=== PATIENT | female | born 1980 | race Caucasian/White ===

== ENCOUNTER 2018-02-18 13:27 | Emergency (ER) | payer MEDICAID ==
[2018-02-18 13:41] VITALS: RESP 18
[2018-02-18] MEDS ORDERED: Sodium Chloride 0.9% 1,000 ML IV ONE (16:03)
[2018-02-18 16:23] VITALS: TEMP 98.1; O2SAT 100
[2018-02-18 16:47] LABS: BASO % 0.4 % (0.0-2.0); EOS # 0.1 K/uL (0.0-0.7); HEMOGLOBIN 12.5 g/dL (11.0-16.0); LYMPH # 1.5 K/uL (1.0-4.3); LYMPH % 21.7 % (20.0-40.0); MEAN CELL VOLUME 82.3 fL (81.0-99.0); MEAN CORPUSCULAR HEMOGLOBIN 26.9 pg (27.0-31.0); MEAN CORPUSCULAR HGB CONC 32.7 g/dL (33.0-37.0); MEAN PLATELET VOLUME 8.2 fL (7.2-11.7); MONO # 0.4 K/uL (0.0-0.8); MONO % 5.6 % (0.0-10.0); NEUT % 71.3 % (50.0-75.0); NRBC % 0.1 % (0.0-2.0); RBC 4.63 Mil/uL (3.80-5.20); RED CELL DISTRIBUTION WIDTH 13.8 % (11.5-14.5)
[2018-02-18 16:49] LABS: HCG,QUALITATIVE URINE NEGATIVE (NEGATIVE)
[2018-02-18 16:50] LABS: SQUAMOUS EPITHIAL < 1 /hpf (0-5); URINE BILIRUBIN NEGATIVE (NEGATIVE); URINE BLOOD 2+ (NEGATIVE); URINE CLARITY Clear (Clear); URINE COLOR Straw (YELLOW); URINE GLUCOSE (UA) NORMAL (Normal); URINE LEUKOCYTE ESTERASE NEG Leu/uL (Negative); URINE PROTEIN NEGATIVE (NEGATIVE); URINE UROBILINOGEN NORMAL mg/dL (0.2-1.0)
[2018-02-18 16:58] LABS: ALB/GLOB RATIO 1.4 (1.0-2.1); ALBUMIN 4.5 g/dL (3.5-5.0); ALT/SGPT 21 U/L (9-52); AST/SGOT 18 U/L (14-36); BLOOD UREA NITROGEN 10 mg/dL (7-17); CALCIUM 8.9 mg/dl (8.6-10.4); GFR NON-AFRICAN AMERICAN > 60
--- NOTE | 2018-02-18 17:01 | RAD ---
Date of service: 2018-02-18 16:28:21 HISTORY: CP COMPARISON: None available. FINDINGS: LUNGS: No active pulmonary disease. PLEURA: No significant pleural effusion identified, no pneumothorax apparent. CARDIOVASCULAR: No aortic atherosclerotic calcification present. Normal cardiac size. No pulmonary vascular congestion. OSSEOUS STRUCTURES: No significant abnormalities. VISUALIZED UPPER ABDOMEN: Normal. OTHER FINDINGS: None. IMPRESSION: No active disease.
[2018-02-18 17:16] LABS: CK-MB < 0.22 ng/mL (0.0-3.38)
--- NOTE | 2018-02-18 17:31 | C.PDOC ---
History Of Present Illness 38 year old female presents to the ED for evaluation of left-sided chest pain which began this morning. Patient describes her pain as sharp, pleuritic and reproducible. Patient reports history of "blood clots" in her mother. She denies fever, chills, cough, shortness of breath, abdominal pain, nausea, vomiting and diarrhea. Time Seen by Provider: 02/18/18 15:50 Chief Complaint (Nursing): Chest Pain History Per: Patient History/Exam Limitations: no limitations Onset/Duration Of Symptoms: Hrs Current Symptoms Are (Timing): Still Present Quality: Sharp, "Pain" Additional History Per: Patient Past Medical History Reviewed: Historical Data, Nursing Documentation, Vital Signs Vital Signs: Last Vital Signs Temp 98.1 F 02/18/18 16:22 Pulse 68 02/18/18 16:22 Resp 18 02/18/18 16:22 BP 107/69 02/18/18 16:22 Pulse Ox 100 02/18/18 16:22 - Medical History PMH: No Chronic Diseases Surgical History: - [facility] Procedures ARTIF RUPT MEMBRANES NEC (12/25/12) BILAT TUBAL DESTRUCT NEC (12/25/12) MONITORING NOS (12/25/12) INJECT/INFUSE NEC (01/23/14) LOW CERVICAL (12/25/12) Family History: States: Unknown Family Hx - Social History Hx Alcohol Use: No Hx Substance Use: No - Immunization History Hx Tetanus Toxoid Vaccination: No Hx Influenza Vaccination: No Hx Pneumococcal Vaccination: No Review Of Systems Constitutional: Negative for: Fever, Chills Cardiovascular: Positive for: Chest Pain (left-sided ) Respiratory: Negative for: Cough, Shortness of Breath Gastrointestinal: Negative for: Nausea, Vomiting, Abdominal Pain, Diarrhea Physical Exam - Physical Exam Appears: Non-toxic, No Acute Distress, Other (in mild pain ) Skin: Normal Color, Warm, Dry, No Rash Head: Atraumatic, Normacephalic Eye(s): bilateral: Normal Inspection Oral Mucosa: Moist Neck: Supple Chest: Symmetrical, No Deformity, Tenderness (to left chest on palpation ) Cardiovascular: Rhythm Regular, No Murmur Respiratory: Normal Breath Sounds, No Rales, No Rhonchi, No Wheezing Gastrointestinal/Abdominal: Soft, No Tenderness, No Guarding, No Rebound Extremity: Normal ROM, Capillary Refill (less than 2 seconds ) Neurological/Psych: Oriented x3, Normal Speech, Normal Cognition ED Course And Treatment - Laboratory Results Result Diagrams: 02/18/18 16:42 02/18/18 16:42 Lab Results: D-Dimer, Quantitative < 200 ng/mlDDU (0-243) 02/18/18 16:42 Troponin I < 0.0120 ng/mL (0.00-0.120) 02/18/18 16:42 Total Bilirubin 0.3 mg/dL (0.2-1.3) 02/18/18 16:42 AST 18 U/L (14-36) 02/18/18 16:42 ALT 21 U/L (9-52) 02/18/18 16:42 Alkaline Phosphatase 72 U/L (38-126) 02/18/18 16:42 Total Protein 7.9 g/dL (6.3-8.3) 02/18/18 16:42 Albumin 4.5 g/dL (3.5-5.0) 02/18/18 16:42 Globulin 3.3 gm/dL (2.2-3.9) 02/18/18 16:42 Albumin/Globulin Ratio 1.4 (1.0-2.1) 02/18/18 16:42 Urine Color Straw (YELLOW) 02/18/18 16:42 Urine Clarity Clear (Clear) 02/18/18 16:42 Urine pH 7.0 (5.0-8.0) 02/18/18 16:42 Ur Specific [place] 1.004 (1.003-1.030) 02/18/18 16:42 Urine Protein Negative mg/dL (NEGATIVE) 02/18/18 16:42 Urine Glucose (UA) Normal mg/dL (Normal) 02/18/18 16:42 Urine Ketones Negative mg/dL (NEGATIVE) 02/18/18 16:42 Urine Blood 2+ (NEGATIVE) H 02/18/18 16:42 Urine Nitrate Negative (NEGATIVE) 02/18/18 16:42 Urine Bilirubin Negative (NEGATIVE) 02/18/18 16:42 Urine Urobilinogen Normal mg/dL (0.2-1.0) 02/18/18 16:42 Ur Leukocyte Esterase Neg Sigrid/uL (Negative) 02/18/18 16:42 Urine RBC (Auto) < 1 /hpf (0-3) 02/18/18 16:42 Ur Squamous Epith Cells < 1 /hpf (0-5) 02/18/18 16:42 Urine HCG, Qual Negative (NEGATIVE) 02/18/18 16:42 Urine HCG, Qual Negative (NEGATIVE) 02/18/18 16:42 O2 Sat by Pulse Oximetry: 100 (on RA ) Pulse Ox Interpretation: Normal Progress Note: Bloodwork, urinalysis, CXR, EKG ordered and reviewed. Toradol IVP and IV fluids given. Disposition Counseled Patient/Family Regarding: Studies Performed, Diagnosis, Need For Followup - Disposition Referrals: Venice Charles MD [Staff Provider] - Disposition: HOME/ ROUTINE Disposition Time: 17:30 Condition: STABLE Additional Instructions: FOLLOW UP WITH YOUR DOCTOR IN 1-2 DAYS USE TYLENOL OR IBUPROFEN NEEDED FOR PAIN RETURN TO ER IF SYMPTOMS WORSEN Instructions: Chest Pain That Is Not Caused by the Heart (DC) Forms: [employer] (Romanian) Print Language: MOLDOVAN - POA Present On Arrival: None - Clinical Impression Clinical Impression: Chest wall pain - Scribe Statement The provider has reviewed the documentation as recorded by the Scribe (Radha Rodriguez) Provider Attestation: All medical record entries made by the Scribe were at my direction and personally dictated by me. I have reviewed the chart and agree that the record accurately reflects my personal performance of the history, physical exam, medical decision making, and the department course for this patient. I have also personally directed, reviewed, and agree with the discharge instructions and disposition.
[2018-02-18] MEDS ORDERED: Sodium Chloride 0.9% 1,000 ML ONE (17:39)
[2018-02-18 18:14] VITALS: BP 112/71; PULSE 90
== END 2018-02-18 18:14 | disposition home or self-care (01) ==
LOC: C.ER 13:27
DX: R07.89 Other chest pain (principal)
CPT/HCPCS: 71045; 80053; 81001; 82550; 82553; 84484; 84703; 85025; 85378; 93005; 96360; 99284; J7030